=== PATIENT | female | born 1985 | race Caucasian/White ===

== ENCOUNTER 2016-11-16 11:17 | Emergency (ER) | payer OTHER ==
[~2016-11-16] VITALS: Ht 157.5 cm; Wt 70.3 kg
--- NOTE | ~2016-11-16 | EKG ---
PATIENT: LAURA HUSTON UNIT #: [id number] Ventricular Rate: 77 BPM Atrial Rate: 77 BPM P-R Interval: 134 ms QRS Duration: 76 ms Q-T Interval: 350 ms QTC Calculation(Bezet): 396 ms P [place]: 67 degrees Calculated R [place]: 66 degrees Calculated T [place]: 44 degrees Diagnosis Line: Normal sinus rhythm with sinus arrhythmia Diagnosis Line: Nonspecific T wave abnormality Diagnosis Line: Abnormal ECG Diagnosis Line: No previous ECGs available Diagnosis Line: Confirmed by BURTON FERNANDEZ MD ([id number]) on Diagnosis Line: 11/16/2016 1:30:04 PM INTERPRETING MD: JIM HASKINS
--- NOTE | ~2016-11-16 | CR63 ---
[facility] A Service of [facility] & [facility] RADIOLOGY TEXT RESULTS PATIENT: LAURA HUSTON LOCATION: [facility] : [id number] UNIT #: [id number] AGE: [address]: Clemente Weinstein MD SEX: F ORDER DR: [id number] [facility] [address] [place], [place] [address] [id number] MR#: [id number] Acc #: [id number] NAME: LAURA HUSTON. : 1985 SEX: F STUDY DATE/TIME: 11/16/2016 15:25 UNIT: [facility] ROOM: STUDY DESCRIPTION: CR Chest 2 View Attending Physician: Clemente Weinstein M.D. Ordering Physician: Clemente Weinstein M.D. Primary Care Physician: Primary Care Physician No MEDICAL IMAGING REPORT This report is preliminary unless electronic signature is present EXAM 2 views chest, 11/16/2016 HISTORY Short of air x4-5 days. Cough, congestion, fever. Smoker 8 years. FINDINGS PA and lateral radiographs the chest presented. Comparison 09/15/2013. The lungs are well inflated. The left lung is clear. Ill-defined patchy and band-like airspace disease in the right middle lobe, probably pneumonia. Some atelectasis may be present. Given the patient's history of tobacco usage, I would recommend short-interval followup after treatment to confirm full resolution. Remainder of the right lung clear. There is no pleural effusion or pneumothorax. Heart and mediastinum are normal in size and contour. Bony structures unremarkable. Dictated by... Moises Mendoza M.D. THIS IS AN ELECTRONICALLY VERIFIED REPORT Moises Mendoza M.D. at 11/19/2016 1:22 PM POLLY/radha TD: 11/17/2016 05:05 JOB #: [id number] MEDICAL IMAGING REPORT Page 1 of 1 COPY
[2016-11-16 11:45] LABS: URINE SOURCE CLEAN CATCH
[2016-11-16 11:50] LABS: URINE APPEARANCE CLEAR; URINE BILIRUBIN NEG (NEG); URINE BLOOD NEG (NEG); URINE COLOR YELLOW; URINE GLUCOSE NEG (NEG); URINE KETONE NEG (NEG); URINE LEUKOCYTE ESTERASE NEG (NEG); URINE NITRATE NEG (NEG); URINE PH 5.5 (5-8); URINE PROTEIN NEG (NEG); URINE SPECIFIC GRAVITY 1.023 (1.003-1.035)
[2016-11-16 11:53] LABS: CULTURE INDICATED? NO
== END 2016-11-16 16:21 | disposition home or self-care (01) ==
LOC: CED 11:17
DX: J18.1 Lobar pneumonia, unspecified organism (principal); J20.9 Acute bronchitis, unspecified; J06.9 Acute upper respiratory infection, unspecified; F17.200 Nicotine dependence, unspecified, uncomplicated
CPT/HCPCS: 71020; 81003; 84703; 93005; 94640; 99285